=== PATIENT | female | born 1950 | race Caucasian/White ===

== ENCOUNTER 2019-09-22 17:30 | Emergency (ER) | payer MEDICAID ==
[~2019-09-22] VITALS: Ht 154.9 cm; Wt 68.0 kg
[2019-09-22 17:36] VITALS: BP 155/68
--- NOTE | 2019-09-22 17:57 | NUR ---
PT TAKEN TO ULTRASOUND
--- NOTE | 2019-09-22 18:50 | NUR ---
PT PLACED IN BED 4
--- NOTE | 2019-09-22 18:50 | NUR ---
PT REFERRED FROM PCP FOR RULE OUT DVT. PT C/O LT CALF PAIN X 3 DAYS. NO VISABLE REDNESS/SWELLING. NO WARMTH TO TOUCH. LT LEG APPEARS NO DIFFERENT THAN RT LEG PT PRIMARILY MAORI SPEAKING. MEDHX: DM, HTN, HLD, ARTHRITIS
--- NOTE | 2019-09-22 19:13 | NUR ---
RECIEVED REPORT FROM [place]. TRANSFER OF CARE AT THIS TIME.
--- NOTE | 2019-09-22 19:50 | NUR ---
Patient discharged with v/s stable. Written and verbal after care instructions given and explained. Patient verbalized understanding. Ambulatory with steady gait. All questions addressed prior to discharge. Advised to follow up with PMD.
[2019-09-22 19:52] VITALS: BP 156/60
== END 2019-09-22 19:50 | disposition home or self-care (01) ==
LOC: MED 17:30
DX: R60.0 Localized edema (principal); E11.9 Type 2 diabetes mellitus without complications; I10 Essential (primary) hypertension; I77.6 Arteritis, unspecified
CPT/HCPCS: 93971; 99284; Q0092